=== PATIENT | male | born 1950 ===

== ENCOUNTER 2020-01-02 06:45 | Day surgery (SDC) | payer OTHER ==
[~2020-01-02 06:45] MED LIST: COZAAR100 MG PO; NORVASC2.5 M1 PO
== END 2020-01-02 15:45 | disposition home or self-care (01) ==
LOC: CIR.AMB 06:45 → ADM 12:30 → CIR.AMB 15:45
PROVIDERS: ATTEND Orthopaedic Surgery Hand Surgery
DX: M24.541 Contracture, right hand (principal); M65.341 Trigger finger, right ring finger; M65.841 Other synovitis and tenosynovitis, right hand